=== PATIENT | female | born 1950 ===

== ENCOUNTER 2018-03-09 09:10 | Outpatient (CLI) | payer OTHER | END 2018-03-09 09:21 | disposition home or self-care (01) | LOC: SONOGRAMA 09:10 | DX: E04.2 Nontoxic multinodular goiter (principal) ==

== ENCOUNTER 2021-12-10 14:29 | Outpatient (CLI) | payer OTHER | END 2021-12-10 14:34 | disposition home or self-care (01) | LOC: RAD 14:29 | PROVIDERS: ATTEND Physical Medicine & Rehabilitation | DX: M25.551 Pain in right hip (principal) ==

== ENCOUNTER → 2022-09-15 | Outpatient (CLI) | payer OTHER | END | disposition home or self-care (01) | LOC: RX STUDY 09:50 | PROVIDERS: ATTEND Internal Medicine Gastroenterology | DX: R13.12 Dysphagia, oropharyngeal phase (principal) ==